=== PATIENT | female | born 1960 | race Caucasian/White ===

== ENCOUNTER → 2024-01-08 10:25 | Outpatient (REF) | payer BC, SELFPAY | LOC: HWRAD 10:25 | PROVIDERS: ATTENDING PHYSICIAN Otolaryngology; FAMILY PHYSICIAN Family Medicine | DX: E04.0 Nontoxic diffuse goiter (principal) | CPT/HCPCS: 76536 ==

== ENCOUNTER → 2024-11-22 13:39 | Outpatient (REF) | payer BC, SELFPAY | LOC: HWRAD 13:39 | PROVIDERS: ATTENDING PHYSICIAN Family Medicine | DX: M79.89 Other specified soft tissue disorders (principal) | CPT/HCPCS: 73590 ==

== ENCOUNTER → 2025-01-02 12:52 | Outpatient (REF) | payer BC, SELFPAY | LOC: HWRAD 12:52 | PROVIDERS: ATTENDING PHYSICIAN Otolaryngology; FAMILY PHYSICIAN Family Medicine | DX: E04.0 Nontoxic diffuse goiter (principal) | CPT/HCPCS: 76536 ==

== ENCOUNTER 2025-05-07 11:37 | Emergency (ER) | payer MEDICARE, OTHER, SELFPAY ==
[2025-05-07 11:39] VITALS: BP 153/78
--- NOTE | 2025-05-07 13:42 | ED.GENMED ---
History of Present Illness
General
Chief Complaint: Musculo-Skeletal Complaint
Source: patient
Exam Limitations: none
Time Seen by Provider: 05/07/25 13:23
Nursing documentation reviewed up to this point in time: agreed with
History of Present Illness
History of Present Illness:
65-year-old female presenting after feeling a pop in her right calf yesterday difficulty walking since. Creased discomfort with flexion of the right ankle. Denies any traumatic injuries. Denies any numbness or weakness.
Past History
Past History
ED Past Medical History: Cancer (bladder CA 2006), HTN, Hypercholesterolemia, NIDDM and Other (diverticulitis, polycystic ovary syndrome, rheumatoid arthritis)
ED Past Surgical History: Other (laparoscopic left hemicolectomy 2006)
Social History
Tobacco: Former smoker
Alcohol: Occasional
Drug: None
Personal:
Living: with family
Review of Systems
Review of Systems
Allergies reviewed?: Yes
All Other Systems: ROS reviewed and negative except as documented in HPI and ROS
Phy Exam
Physical Exam
Physical Exam:
GENERAL: Alert , in no apparent distress
EYE: pupils equal and reactive
NECK: Supple, no significant adenopathy.
ENT: o/p clr, mmm.
CARDIAC: Regular rate and rhythm .
LUNGS: Clear breath sounds bilaterally, no acute respiratory distress, no wheezes/rales/rhonchi
ABDOMEN: Soft, without focal tenderness, no r/g, no cvat
NEUROLOGICAL: Alert and oriented, no focal neuro deficits
SKIN: Warm and dry, skin intact.
MUSCULOSKELETAL: Tenderness when palpating the right gastroc increase discomfort with flexion of the right ankle but good range of motion. Achilles intact good movement with Lind test. No laxity to the right knee. No edema, well perfused.
PSYCH: Normal and appropriate interaction.
Course
Orders/Labs/Results
Orders:
Orders
05/07/25 13:42
boot [Ortho Boot Right- Treatment] ONCE
Short or tall?: Tall
Vital Signs
Initial and Last Documented VS:
Initial Vital Signs
Temp Pulse Resp BP Pulse Ox
98 F 94 16 153/78 97
05/07/25 11:39 05/07/25 11:39 05/07/25 11:39 05/07/25 11:39 05/07/25 11:39
Last Documented Vital Signs
Temp Pulse Resp BP Pulse Ox
98 F 94 16 153/78 97
05/07/25 11:39 05/07/25 11:39 05/07/25 11:39 05/07/25 11:39 05/07/25 11:39
MDM/Problems Addressed
MDM/Problems Addressed:
65-year-old female presenting to the emergency department today with concerns of right calf discomfort she felt a pop to the area when in the shower yesterday. Here she has tenderness to the gastroc and increased discomfort with flexion of the
ankle and stretching of the gastroc. Patient with likely gastroc strain. No evidence of Achilles injury no joint laxity no evidence of bony injury. Stable for outpatient management. Return precautions given.
*Pulse Oximetry
SaO2: 97
Oxygen Mode of Delivery: Room air
Patient hypoxic: no (97)
*Critical Care Note
Total Time (30-74mins, 75-104mins- exclusive of procedures): Not Applicable
ED Attending Note
-
Portions of this chart may have been created with voice recognition software.� Occasional wrong word or��sound alike� substitutions may have occurred due to the inherent limitations of voice recognition software.
Discharge Plan
Departure
Patient Disposition: Home (Routine Discharge)
Date of Disposition: 05/07/25
Time of Disposition: 13:45
Patient with high blood pressure during this ER visit?: No
Condition: Good
Covid-19: Not Applicable
Discharge Problem:
Gastrocnemius strain
Instructions: Muscle Strain (DC)
Prescriptions:
No Action
metformin 500 MG tablet extended release 24 hr
1,000 mg PO BID
simvastatin 10 MG tablet
10 mg PO DAILY
buspirone 10 MG tablet
10 mg PO DAILY
telmisartan [Micardis] 80 MG tablet
80 mg PO DAILY
levocetirizine 5 MG tablet
5 mg PO DAILY
Montelukast Sodium 10 MG Tab
10 mg PO DAILY
Victoza 1.8 MG
1.8 mg PO DAILY
sucralfate 1 GM/10 ML suspension
1 gm PO ACHS Qty: 100 0RF
esomeprazole magnesium [Nexium] 40 MG capsule,delayed release(DR/EC)
40 mg PO DAILY Qty: 30 0RF
ondansetron 4 MG tablet,disintegrating
4 mg PO TIDPRN PRN (Reason: nausea) Qty: 20 0RF
Referrals:
Gustabo Barr MD [Active, Orthopedics] - Follow up in 5-7 days
Activity Restrictions/Additional Instructions:
You came to the emergency department today with concerns of right calf discomfort. No evidence of any surgical injury. Please feel close with Ortho and rest ice compress and elevate in the meantime. Return for any worsening, new or concerning
symptoms.
Interventions
Interventions:
*Risk Screen - Suicide Last Done: 05/07/25 11:39
*Neglect/Abuse Screening Last Done: 05/07/25 11:39
Discharge Date and Time
Print Language: [id number]
== END 2025-05-07 13:45 | disposition home or self-care (01) ==
LOC: EMR 11:37
PROVIDERS: EMERGENCY PHYSICIAN Emergency Medicine; FAMILY PHYSICIAN Family Medicine
DX: S86.111A Strain of other muscle(s) and tendon(s) of posterior muscle group at lower leg level, right leg, initial encounter (principal); X58.XXXA Exposure to other specified factors, initial encounter; E11.9 Type 2 diabetes mellitus without complications; E78.00 Pure hypercholesterolemia, unspecified; I10 Essential (primary) hypertension; M06.9 Rheumatoid arthritis, unspecified; Z85.51 Personal history of malignant neoplasm of bladder; Z87.891 Personal history of nicotine dependence
CPT/HCPCS: 99282

== ENCOUNTER → 2025-09-08 12:34 | Outpatient (REF) | payer MEDICARE, OTHER, SELFPAY | LOC: HWRAD 12:34 | PROVIDERS: ATTENDING PHYSICIAN Family Medicine | DX: Z13.820 Encounter for screening for osteoporosis (principal); Z78.0 Asymptomatic menopausal state | CPT/HCPCS: 77080 ==